=== PATIENT | female | born 1940 | race Caucasian/White ===

== ENCOUNTER 2020-10-27 11:27 | Outpatient (REF) | payer MEDICARE, SELFPAY ==
[2020-10-27 13:49] LABS: MANUAL DIFF FLAG NO
[2020-10-27 13:54] LABS: Basophils Absolute Auto 0.1 X10*3/uL (0.0-0.2); Basophils Percent Auto 0.6 % (0-2); Eosinophils Absolute Auto 0.1 X10*3/uL (0.0-0.4); Eosinophils Percent Auto 1.2 % (0-4); Hematocrit 47.7 % (37-47); Hemoglobin 15.3 g/dl (12.0-16.0); Imm Gran Abs Auto 0.03 X10*3/uL (0.00-0.03); Imm Gran Pct Auto 0.3 % (0.0-0.4); Lymphocytes Absolute Auto 2.6 X10*3/uL (1.2-4.9); Lymphocytes Percent Auto 21.4 % (20-40); Mean Corpuscular HGB Conc 32.1 g/dl (31.0-35.0); Mean Corpuscular Hemoglobin 30.3 pg (27.0-33.0); Mean Corpuscular Volume 94.5 fL (80-98); Mean Platelet Volume 12.3 fL (9.4-12.3); Monocytes Absolute Auto 0.9 X10*3/uL (0.1-1.2); Monocytes Percent Auto 7.5 % (2-11); Neutrophils Absolute Auto 8.3 X10*3/uL (2.0-8.3); Platelet Count 203 X10*3/uL (160-400); Red Blood Count 5.05 X10*6/uL (4.20-5.50); Red Cell Distribution Width 12.9 % (11.0-16.0); White Blood Count 11.9 X10*3/uL (4.8-10.8)
[2020-10-27 14:07] LABS: Estimated Average Glucose 128 mg/dL; Hemoglobin A1c % 6.1 %
[2020-10-27 14:09] LABS: Glucose Urine UA NEG (NEG); Leukocyte Esterase Urine 1+ (NEG); Nitrite Urine NEG (NEG); Specific Gravity - Urine 1.025 (1.005-1.025); UACC Culture Trigger YES; Urine Blood TRACE (NEG); Urine Ketones NEG (NEG); Urine Protein 1+ MG/DL (NEG-TRACE)
[2020-10-27 14:14] LABS: Appearance Urine HAZY; Color Urine YELLOW
[2020-10-27 14:19] LABS: Alanine Aminotransferase 33 U/L (0-31); Albumin Level 4.2 g/dL (3.5-5.0); Alkaline Phosphatase 90 U/L (39-117); Anion Gap 16 (12-20); Aspartate Amino Transferase 27 U/L (5-31); Bilirubin Total 0.4 mg/dL (0.0-1.0); Blood Urea Nitrogen 17 mg/dL (9-16); Calcium 9.3 mg/dL (8.4-10.2); Carbon Dioxide 26 mmol/L (22-29); Chloride 105 mmol/L (96-108); Cholesterol 172 mg/dL; Estimated Glomerular Filt Rate 55; Glucose Fasting 119 mg/dL (60-99); HDL Cholesterol 40 mg/dL; LDL Cholesterol Calculated 105 mg/dl; Lipase 19 U/L (8-78); Potassium 4.4 mmol/L (3.3-5.1); Sodium 143 mmol/L (135-145); Total Protein 7.4 g/dL (6.5-8.0); Triglycerides 136 mg/dL
[2020-10-27 14:23] LABS: Creatinine Urine 129.95 mg/dL; Microalbum/Creatinine Ratio Ur 132.3 ug/mg cr
[2020-10-27 15:06] LABS: Bacteria Urine 1+ /LPF; RBC Urine 0-2 /HPF (0); Squamous Epithelial Cell Urine 3+ /LPF
== END 2020-10-27 11:28 | disposition home or self-care (01) ==
LOC: HO.10HDL 11:27
PROVIDERS: Visit Provider Internal Medicine
DX: R63.4 Abnormal weight loss (principal); I10 Essential (primary) hypertension; E11.9 Type 2 diabetes mellitus without complications; J44.9 Chronic obstructive pulmonary disease, unspecified; E78.00 Pure hypercholesterolemia, unspecified; R10.9 Unspecified abdominal pain
CPT/HCPCS: 36415; 80053; 80061; 81001; 81003; 82043; 83036; 83690; 85025; 86140; 87086

== ENCOUNTER 2020-11-04 08:21 | Outpatient (REF) | payer MEDICARE, SELFPAY ==
--- NOTE | ~2020-11-04 | XR_ITS ---
EXAMINATION: XR SHOULDER, RIGHT CLINICAL INFORMATION: Right shoulder pain COMPARISON: None TECHNIQUE: Two views of the right shoulder. FINDINGS: There is a comminuted chronic fracture of the humeral head and surgical neck with some periosteal new bone formation but fracture line still being evident and somewhat sclerotic. There is subluxation of the humeral head. A bony fragment is seen overlying the space between the femoral head and glenoid. No widening of the coracoclavicular space is seen. Osteopenia present. XR/XR shoulder RT min 2V IMPRESSION: Chronic fracture/subluxation of the right humeral head.
== END 2020-11-04 08:22 | disposition home or self-care (01) ==
LOC: HO.HOSX 08:21
PROVIDERS: Visit Provider Physician Assistant
DX: S42.201A Unspecified fracture of upper end of right humerus, initial encounter for closed fracture (principal); M25.511 Pain in right shoulder
CPT/HCPCS: 20610; 73030; 99202; J1020

== ENCOUNTER 2022-11-09 14:07 | Outpatient (REF) | payer MEDICARE, SELFPAY ==
[2022-11-09 14:54] LABS: Appearance Urine Cloudy; Color Urine Yellow; Glucose Urine UA Negative (Negative); Leukocyte Esterase Urine Moderate (2+) (Negative); Nitrite Urine Negative (Negative); PH 5.5 (5.0-9.0); UMIC TRIGGER UA YES; Urine Blood Negative (Negative); Urine Ketones Negative (Negative); Urine Protein Negative (Neg-Trace)
[2022-11-09 14:55] LABS: Basophils Absolute Auto 0.1 X10*3/uL (0.0-0.2); Basophils Percent Auto 0.5 % (0-2); Eosinophils Absolute Auto 0.2 X10*3/uL (0.0-0.4); Eosinophils Percent Auto 0.9 % (0-4); Hematocrit 49.9 % (37.0-47.0); Hemoglobin 16.1 g/dl (12.0-16.0); Imm Gran Abs Auto 0.17 X10*3/uL (0.00-0.03); Lymphocytes Absolute Auto 2.7 X10*3/uL (1.2-4.9); Lymphocytes Percent Auto 16.7 % (20-40); MANUAL DIFF FLAG SCAN; Mean Corpuscular HGB Conc 32.3 g/dl (31.0-35.0); Mean Corpuscular Hemoglobin 29.7 pg (27.0-33.0); Mean Corpuscular Volume 92.1 fL (80.0-98.0); Mean Platelet Volume 11.8 fL (9.4-12.3); Monocytes Absolute Auto 1.5 X10*3/uL (0.1-1.2); Monocytes Percent Auto 9.3 % (2-11); Neutrophils Absolute Auto 11.7 x10*3/uL (2.0-8.3); Neutrophils Percent Auto 71.6 % (45-73); Platelet Count 206 X10*3/uL (160-400); Red Blood Count 5.42 X10*6/uL (4.20-5.50); Red Cell Distribution Width 13.2 % (11.0-16.0); SCAN SMEAR FLAG 1; White Blood Count 16.3 X10*3/uL (4.8-10.8)
[2022-11-09 15:02] LABS: Estimated Average Glucose 143 mg/dL; Hemoglobin A1c % 6.6 %
[2022-11-09 15:08] LABS: Bacteria Urine None Seen (None Seen); Hyaline Casts Urine 0-2 /LPF (0-2); RBC Urine 0-2 /HPF (0-2); WBC Urine 0-5 /HPF (0-5)
[2022-11-09 15:26] LABS: Alanine Aminotransferase 11 U/L (0-31); Alkaline Phosphatase 90 U/L (39-117); Anion Gap 16 (12-20); Aspartate Amino Transferase 12 U/L (5-31); Bilirubin Total 0.8 mg/dL (0.0-1.0); Blood Urea Nitrogen 15 mg/dL (9-16); Calcium 9.3 mg/dL (8.4-10.2); Carbon Dioxide 25 mmol/L (22-29); Chloride 105 mmol/L (96-108); Cholesterol 188 mg/dL; Estimated Glomerular Filt Rate 60; Glucose Fasting 115 mg/dL (60-99); HDL Cholesterol 41 mg/dL; LDL Cholesterol Calculated 122 mg/dl; Potassium 4.2 mmol/L (3.3-5.1); Sodium 142 mmol/L (135-145); Total Protein 7.3 g/dL (6.5-8.0); Triglycerides 129 mg/dL
[2022-11-09 15:28] LABS: Creatinine Urine 46.06 mg/dL
[2022-11-09 15:42] LABS: Vitamin D 25-OH Total 35.4 ng/mL (>30)
[2022-11-09 15:53] LABS: SLIDE REVIEW VERIFIED
== END 2022-11-09 14:08 | disposition home or self-care (01) ==
LOC: HO.LAB 14:07
PROVIDERS: PCP Internal Medicine; Visit Provider Internal Medicine
DX: I12.9 Hypertensive chronic kidney disease with stage 1 through stage 4 chronic kidney disease, or unspecified chronic kidney disease (principal); N18.9 Chronic kidney disease, unspecified; J44.9 Chronic obstructive pulmonary disease, unspecified; E78.00 Pure hypercholesterolemia, unspecified
CPT/HCPCS: 36415; 80053; 80061; 81001; 82043; 82306; 83036; 85025

== ENCOUNTER 2024-02-04 10:06 | Outpatient (REF) | payer MEDICARE, SELFPAY ==
[2024-02-04 10:34] LABS: Appearance Urine Cloudy; Color Urine Yellow; Glucose Urine UA Negative (Negative); Leukocyte Esterase Urine Large (3+) (Negative); MANUAL DIFF FLAG NO; Nitrite Urine Negative (Negative); UMIC TRIGGER UA YES; Urine Blood Trace (Negative); Urine Ketones Negative (Negative); Urine Protein 30 (1+) mg/dL (Neg-Trace)
[2024-02-04 10:36] LABS: Basophils Absolute Auto 0.1 X10*3/uL (0.0-0.2); Basophils Percent Auto 0.5 % (0-2); Eosinophils Absolute Auto 0.2 X10*3/uL (0.0-0.4); Eosinophils Percent Auto 1.3 % (0-4); Hematocrit 49.4 % (37.0-47.0); Hemoglobin 16.2 g/dl (12.0-16.0); Imm Gran Abs Auto 0.06 X10*3/uL (0.00-0.03); Imm Gran Pct Auto 0.5 % (0.0-0.4); Lymphocytes Absolute Auto 2.6 X10*3/uL (1.2-4.9); Lymphocytes Percent Auto 20.6 % (20-40); Mean Corpuscular HGB Conc 32.8 g/dl (31.0-35.0); Mean Corpuscular Hemoglobin 30.1 pg (27.0-33.0); Mean Corpuscular Volume 91.8 fL (80.0-98.0); Mean Platelet Volume 11.5 fL (9.4-12.3); Monocytes Absolute Auto 0.9 X10*3/uL (0.1-1.2); Monocytes Percent Auto 7.3 % (2-11); Neutrophils Absolute Auto 8.9 x10*3/uL (2.0-8.3); Neutrophils Percent Auto 69.8 % (45-73); Platelet Count 216 X10*3/uL (160-400); Red Blood Count 5.38 X10*6/uL (4.20-5.50); Red Cell Distribution Width 14.4 % (11.0-16.0); White Blood Count 12.8 X10*3/uL (4.8-10.8)
[2024-02-04 10:57] LABS: RBC Urine 0-2 /HPF (0-2)
[2024-02-04 10:58] LABS: Bacteria Urine 4+ (None Seen); Granular Casts Urine Present; Hyaline Casts Urine 0-2 /LPF (0-2)
[2024-02-04 11:16] LABS: Estimated Average Glucose 134 mg/dL; Hemoglobin A1c % 6.3 % (<6.0)
[2024-02-04 11:33] LABS: Alanine Aminotransferase 17 U/L (0-31); Albumin Level 4.1 g/dL (3.5-5.0); Alkaline Phosphatase 80 U/L (39-117); Anion Gap 11 (12-20); Aspartate Amino Transferase 18 U/L (5-31); Bilirubin Total 0.4 mg/dL (0.0-1.0); Blood Urea Nitrogen 16 mg/dL (9-16); Calcium 10.1 mg/dL (8.4-10.2); Carbon Dioxide 30 mmol/L (22-29); Chloride 105 mmol/L (96-108); Cholesterol 180 mg/dL (<200); Estimated Glomerular Filt Rate 50; Glucose Fasting 159 mg/dL (60-99); HDL Cholesterol 38 mg/dL (>40); LDL Cholesterol Calculated 110 mg/dL (<100); Potassium 4.1 mmol/L (3.3-5.1); Sodium 142 mmol/L (135-145); Total Protein 8.2 g/dL (6.5-8.0); Triglycerides 164 mg/dL (<150)
[2024-02-04 11:43] LABS: Microalbum/Creatinine Ratio Ur 262.8 ug/mg cr (<30)
[2024-02-04 11:51] LABS: Thyroid Stimulating Hormone 3.76 uIU/mL (0.32-4.0)
== END 2024-02-04 10:07 | disposition home or self-care (01) ==
LOC: HO.10HDL 10:06
PROVIDERS: Visit Provider Internal Medicine
DX: I10 Essential (primary) hypertension (principal); J44.9 Chronic obstructive pulmonary disease, unspecified; E78.00 Pure hypercholesterolemia, unspecified; E11.9 Type 2 diabetes mellitus without complications
CPT/HCPCS: 36415; 80053; 80061; 81001; 82043; 82570; 83036; 84443; 85025

== ENCOUNTER 2025-01-15 09:31 | Outpatient (AMB) | payer MEDICARE, SELFPAY ==
--- NOTE | 2025-01-15 09:33 | A.OFFPC_ITS ---
Vital Signs 01/15/25 09:37 Height 5 ft 3 in Weight 197 lb BMI 34.9 BP 162/68 H Respiration 16 Pulse 57 Pulse Source Pulse Oximeter Temp 97.1 F Temp Source Temporal Artery Scan Pulse Oximetry (%) 96 Oxygen Delivery Method Room Air Comment eight given by patient Intake Visit Reasons: medications It Application Support Analyst Required: No Accompanied by: Self / Same As Patient Allergies No Known Allergies Allergy (Verified 01/15/25 09:33) HPI HPI Comments History of Present Illness Details The patient is a 84 year old female with a past medical history of stu betes, hyperntesion, COPD, hearing loss, OA s/p right hip replacement presenting for follow up CV: amlodipine, coreg, pravastatin. Blood pressure is high today. Patient has not yet taken her medications and notes that she is quite anxious DM: on metformin. Due for A1C. Unsure of last eye exam ROS CONSTITUTIONAL: Denies weight loss, fever and chills. HEENT: Denies changes in vision and hearing. RESPIRATORY: Denies SOB and cough. CV: Denies palpitations and CP GI: Denies abdominal pain, nausea, vomiting and diarrhea. : Denies dysuria and urinary frequency. MSK: Denies new myalgia and joint pain. SKIN: Denies rash and pruritus. NEUROLOGICAL: Denies headache PSYCHIATRIC: Denies recent changes in mood. PHYSICAL EXAM: GENERAL: Alert and oriented x 3. NAD EYES: EOMI. Anicteric. HENT: Moist mucous membranes. No scleral icterus. No cervical lymphadenopathy. LUNGS: Clear to auscultation bilaterally. CARDIOVASCULAR: Regular rate and rhythm. No murmur. No JVD. ABDOMEN: Soft, non-tender +bs EXTREMITIES: No edema. Non-tender. SKIN: No rashes or lesions. Warm. NEUROLOGIC: No focal neurological deficits. CN II-XII grossly intact PSYCHIATRIC: Cooperative. Appropriate mood and affect [facility] Medical History High cholesterol Diabetes High blood pressure Questionnaire PHQ-9 Over the last 2 weeks, how often have you been bothered by any of the following problems? 43351 - PHQ-9 Billing: Patient declined-do not bill Source: Developed by Drs. Sha Momin, Dilma Krause, Jaxson Fine and colleagues, with an educational palak from [employer]. Physical exam (Primary Care) Vital Signs: Last Vital Signs Temp 97.1 F 01/15/25 09:37 Pulse 57 01/15/25 09:37 Resp 16 01/15/25 09:37 BP 162/68 H 01/15/25 09:37 Pulse Ox 96 01/15/25 09:37 Oxygen Delivery Method Room Air 01/15/25 09:37 BMI result Body Mass Index 34.9 Coding Level of Care Code New Pt Level 4 (13708) Complex EM visit Add On G2211 Diagnoses Hypertension, unspecified type I10 Hypertension type: unspecified High cholesterol E78.00 Type 2 diabetes mellitus without complication, without long-term current use of insulin E11.9 Diabetes mellitus type: type 2 Diabetes mellitus detention insulin use: without intermodal dispatcher use Diabetes mellitus complication status: without complication Assessment & Plan Assessment & Plan (1) High blood pressure: Code(s): I10 - Essential (primary) hypertension Category: Medical Qualifiers: Hypertension type: unspecified Qualified Code(s): I10 - Essential (primary) hypertension (2) High cholesterol: Code(s): E78.00 - Pure hypercholesterolemia, unspecified Category: Medical (3) Diabetes: Code(s): E11.9 - Type 2 diabetes mellitus without complications Category: Medical Qualifiers: Diabetes mellitus type: type 2 Diabetes mellitus intermodal dispatcher insulin use: without detention use Diabetes mellitus complication status: without complication Qualified Code(s): E11.9 - Type 2 diabetes mellitus without complications Plan 84 y/o to establish Past medical surgical social reviewed HTN-elevated today. Discussing home monitoring DM-Labs ordered. Will follow up pending results Orders: Orders Complete Blood Count Auto Diff Today E11.9 - Type 2 diabetes mellitus without complications, E78.00 - Pure hypercholesterolemia, unspecified, I10 - Essential (primary) hypertension, Z13.0 - Encounter for screening for diseases of the blood and blood-forming organs and certain disorders involving the immune mechanism UA CC w/rflx Micro + Cult Today E11.9 - Type 2 diabetes mellitus without complications, E78.00 - Pure hypercholesterolemia, unspecified, I10 - Essential (primary) hypertension, Z13.0 - Encounter for screening for diseases of the blood and blood-forming organs and certain disorders involving the immune mechanism Hemoglobin A1c Today E11.9 - Type 2 diabetes mellitus without complications, E78.00 - Pure hypercholesterolemia, unspecified, I10 - Essential (primary) hypertension, Z13.0 - Encounter for screening for diseases of the blood and blood-forming organs and certain disorders involving the immune mechanism LDL Cholesterol Direct Today E11.9 - Type 2 diabetes mellitus without complications, E78.00 - Pure hypercholesterolemia, unspecified, I10 - Essential (primary) hypertension, Z13.0 - Encounter for screening for diseases of the blood and blood-forming organs and certain disorders involving the immune mechanism Comprehensive Met. Panel Today E11.9 - Type 2 diabetes mellitus without complications, E78.00 - Pure hypercholesterolemia, unspecified, I10 - Essential (primary) hypertension, Z13.0 - Encounter for screening for diseases of the blood and blood-forming organs and certain disorders involving the immune mechanism
[2025-01-15 09:37] VITALS: BP 162/68; PULSE 57; RESP 16; TEMP 36.2; O2SAT 96; BMI 34.9
--- OUTSIDE RECORDS SUMMARY | 2025-01-15 09:58 | XMS_ITS | Clinical Summary ---
Author Organization [facility], Address [address] [place] [address] [place] [address] Phone Care Team Providers Care Commercial Census Taker Name Role Phone Geronimo Stringer MD Primary Care Provider [phone] Medications pravastatin (PRAVACHOL) 80 MG tablet Comments: Filled Date: Feb 24 2015 12:00AM Duration: 30 02/24/2015 Active metFORMIN (GLUCOPHAGE) 500 MG tablet Comments: Filled Date: Feb 10 2015 12:00AM Duration: 60 12/09/2014 Active HYDROcodone-lorenzo taminophen (NORCO) 7.5-325 MG per tablet Comments: Filled Date: Feb 14 2015 12:00AM Duration: 30 02/02/2015 Active carvedilol (Coreg) 12.5 MG tablet 1 tablet 2 (two) times a day 03/06/2016 Active amLODIPine-luca zepril (LOTREL 5-10) 5-10 MG per capsule Take 1 capsule by mouth 1 (one) time each day 02/15/2015 Active Cholecalciferol (Vitamin D-3) 125 MCG (5000 UT) tablet Take 1 tablet by mouth 2 (two) times a week Active Active Problems Problem Noted Date Diagnosed Date Chronic kidney disease stage 1 07/20/2021 Type 2 diabetes mellitus 07/20/2021 Essential hypertension 07/20/2021 Hyperlipidemia 07/20/2021 Adult polycystic kidney 07/20/2021 Multiple congenital cysts of kidney 07/20/2021 Family History Relation Status Comments Father Mother Social History Tobacco Use Types Packs/Day Years Used Date Smoking Tobacco: Every Day Cigarettes 1 67.4 Started: 08/05/1958 Smokeless Tobacco: Never Alcohol Use Standard Drinks/Week Comments No 0 (1 standard drink = 0.6 oz pur e alcohol) Comments Unknown Sex and Gender Information Value Date Recorded Sex Assigned at Not on file Legal Sex Female 4:32 PM EST Gender Identity Not on file Sexual Orientation Not on file Last Filed Vital Signs Vital Sign Reading Time Taken Comments Blood Pressure 142/68 07/27/2021 12:54 PM EST Pulse - - Temperature - - Respiratory Rate - - Oxygen Saturation - - Inhaled Oxygen Concentration - - Weight 87.1 kg (192 lb) 07/11/2017 12:00 PM EST Height 160 cm (5' 3 ) 07/11/2017 12:00 PM EST Body Mass Index 34.01 07/11/2017 12:00 PM EST Plan of Treatment Health Maintenance Due Date Last Done Comments Pneumococcal Vaccine: 50+ Ye ars (1 of 2 - PCV) 1959 Diabetes: Hemoglobin A1C 11/06/2019 08/07/2017 Diabetes: Ophthalmology Exam 11/06/2019 Diabetes: Pedal Pulse Checked 11/06/2019 Diabetes: Sensory Foot Exam 11/06/2019 Diabetes: Visual Foot Exam 11/06/2019 Influenza Vaccine (Season Ended) 2025 Hepatitis B Vaccine Aged Out No longe r eligible based on patient's age to complete this topic Procedures Procedure Name Priority Date/Time Associated Diagnosis Comments LAB TELETYPESETTER MONITOR Routine 08/07/2017 12:00 AM EST from Last 3 Months or Most Recently Relevant to Health Maintenance Results * (ABNORMAL) Lab Packer And Carry Out (08/07/2017 12:00 AM EST) Potassium 4.4 3.6 - 5.2 mmol/L [facility] GFR Calculated 71 ml/min [facility] Hemoglobin A1C 6.4 % [facility] BUN 17 8 - 23 mg/dL [facility] Creatinine 0.8 0.4 - 1.1 mg/dL [facility] Sodium 141 133 - 145 mmol/L [facility] Carbon Dioxide (CO2) 27 22 - 29 mmol/L [facility] Hgb 16.3(H) 12.0 - 16.0 g/dL [facility] Hematocrit 50.6 % [facility] Platelets 205 150 - 450 K/uL [facility] WBC 11.8(H) 4.5 - 11.0 K/uL [facility] Glucose 110 mg/dl [facility] 08/07/2017 us [facility] Conversion LAB [id number] LICITED RESULTS Final Result VIRALA from Last 3 Months or Most Recently Relevant to Health Maintenance Insurance [facility] Care Teams Commercial Census Taker Relationship Specialty Start Date End Date Geronimo Stringer MD [id number] [place], [place] PCP - General 06/09/19
== END 2025-01-15 09:55 | disposition home or self-care (01) ==
LOC: HO.HMCHD 09:32
PROVIDERS: PCP Internal Medicine; Visit Provider Internal Medicine
DX: I10 Essential (primary) hypertension (principal); E78.00 Pure hypercholesterolemia, unspecified; E11.9 Type 2 diabetes mellitus without complications

== ENCOUNTER → 2025-01-15 09:31 | Outpatient (BNVA) | payer MEDICARE, SELFPAY | PROVIDERS: PCP Internal Medicine; Visit Provider Internal Medicine | DX: I10 Essential (primary) hypertension (principal); E78.00 Pure hypercholesterolemia, unspecified; E11.9 Type 2 diabetes mellitus without complications; J44.9 Chronic obstructive pulmonary disease, unspecified; Z79.84 Long term (current) use of oral hypoglycemic drugs; Z79.899 Other long term (current) drug therapy; Z96.641 Presence of right artificial hip joint | CPT/HCPCS: 99202 ==

== ENCOUNTER 2025-01-15 10:02 | Outpatient (REF) | payer MEDICARE, SELFPAY ==
[2025-01-15 13:08] LABS: MANUAL DIFF FLAG NO
[2025-01-15 13:14] LABS: Basophils Absolute Auto 0.1 X10*3/uL (0.0-0.2); Basophils Percent Auto 0.7 % (0-2); Eosinophils Absolute Auto 0.2 X10*3/uL (0.0-0.4); Eosinophils Percent Auto 1.3 % (0-4); Hematocrit 47.5 % (37.0-47.0); Hemoglobin 15.4 g/dl (12.0-16.0); Imm Gran Abs Auto 0.06 X10*3/uL (0.00-0.03); Imm Gran Pct Auto 0.4 % (0.0-0.4); Lymphocytes Absolute Auto 2.7 X10*3/uL (1.2-4.9); Lymphocytes Percent Auto 18.1 % (20-40); Mean Corpuscular HGB Conc 32.4 g/dl (31.0-35.0); Mean Corpuscular Hemoglobin 29.7 pg (27.0-33.0); Mean Corpuscular Volume 91.7 fL (80.0-98.0); Mean Platelet Volume 11.3 fL (9.4-12.3); Monocytes Absolute Auto 1.1 X10*3/uL (0.1-1.2); Monocytes Percent Auto 7.7 % (2-11); Neutrophils Absolute Auto 10.6 x10*3/uL (2.0-8.3); Neutrophils Percent Auto 71.8 % (45-73); Platelet Count 252 X10*3/uL (160-400); Red Blood Count 5.18 X10*6/uL (4.20-5.50); Red Cell Distribution Width 13.4 % (11.0-16.0); White Blood Count 14.7 X10*3/uL (4.8-10.8)
[2025-01-15 13:23] LABS: Appearance Urine Clear; Color Urine Yellow; Glucose Urine UA Negative (Negative); Leukocyte Esterase Urine Moderate (2+) (Negative); Nitrite Urine Negative (Negative); Specific Gravity - Urine <= 1.005 (1.005-1.025); UMIC TRIGGER UACC YES; Urine Blood Negative (Negative); Urine Ketones Negative (Negative); Urine Protein Trace mg/dL (Neg-Trace)
[2025-01-15 13:27] LABS: Bacteria Urine Trace (None Seen); Hyaline Casts Urine 0-2 /LPF (0-2); RBC Urine 0-2 /HPF (0-2); UACC Culture Trigger YES
[2025-01-15 13:32] LABS: Estimated Average Glucose 126 mg/dL; Hemoglobin A1C 170.6845 umol/L; Total Hemoglobin (HGBA1C) 4028.5529 umol/L
[2025-01-15 13:55] LABS: Alanine Aminotransferase 16 U/L (0-31); Albumin Level 4.1 g/dL (3.5-5.0); Alkaline Phosphatase 77 U/L (39-117); Anion Gap 13 (12-20); Aspartate Amino Transferase 27 U/L (5-31); Bilirubin Total 0.3 mg/dL (0.0-1.0); Blood Urea Nitrogen 15 mg/dL (9-16); Calcium 9.5 mg/dL (8.4-10.2); Carbon Dioxide 29 mmol/L (22-29); Chloride 103 mmol/L (96-108); Estimated Glomerular Filt Rate 51; Glucose Random 136 mg/dL (60-115); Potassium 3.5 mmol/L (3.3-5.1); Sodium 141 mmol/L (135-145); Total Protein 7.8 g/dL (6.5-8.0)
[2025-01-16 18:57] LABS: LDL Cholesterol Direct 122 mg/dL (<100)
== END 2025-01-15 10:03 | disposition home or self-care (01) ==
LOC: HO.10HDL 10:02
PROVIDERS: Visit Provider Internal Medicine
DX: I10 Essential (primary) hypertension (principal); E78.00 Pure hypercholesterolemia, unspecified; E11.9 Type 2 diabetes mellitus without complications; Z13.0 Encounter for screening for diseases of the blood and blood-forming organs and certain disorders involving the immune mechanism; R82.90 Unspecified abnormal findings in urine
CPT/HCPCS: 36415; 80053; 81001; 83036; 83721; 85025; 87086